=== PATIENT | male | born 1995 ===

== ENCOUNTER 2019-04-23 01:13 | Emergency (ER) | payer SELFPAY ==
--- NOTE | 2019-04-23 01:35 | ER Report ---
History and Physical Time Seen By MD: 01:31 HPI/ROS CHIEF COMPLAINT: Suicidal ideation HISTORY OF PRESENT ILLNESS: 23-year-old male, anxious brought in by police and fire dispatcher who brought him in after he picked up one of the blue phones for help. Patient states he was wandering around trying to find the hospital. He is acutely anxious. He is expressing suicidal ideation. He has a plan to jump off a bridge. Patient denies drugs or alcohol use. He states occasional alcohol. Patient's currently on an antibiotic for abrasions on his arm from a accident skateboarding. Patient is here visiting from [place]. Patient states he should probably be in counseling, but he doesn't go. REVIEW OF SYSTEMS: Respiratory: No cough, no dyspnea. Cardiovascular: No chest pain, no palpitations. Gastrointestinal: No vomiting, no abdominal pain. Musculoskeletal: No back pain. Allergies: Coded Allergies: No Known Drug Allergies (Unverified , 04/23/19) Reviewed Nurses Notes: Yes Old Medical Records Reviewed: Yes Constitutional Physical Exam General Appearance: The patient is alert, has no immediate need for airway protection and no current signs of toxicity. Eyes: Pupils equal and round no injection. Respiratory: Chest is non tender, lungs are clear to auscultation. Cardiac: regular rate and rhythm Gastrointestinal: Abdomen is soft and non tender, no masses, bowel sounds normal. Musculoskeletal: Neck: Neck is supple and non tender. Extremities have full range of motion and are non tender. There are healing abrasions on his left forearm, no signs of infection Skin: No rashes or lesions. DIFFERENTIAL DIAGNOSIS: After history and physical exam differential diagnosis was considered for depression including functional and major depression, situational depression, medication side effect, drugs and alcohol abuse. Medical Decision Making Data Points Laboratory Hematology Test 04/23/19 01:55 White Blood Count 6.1 k/uL (4.5-11.0) Red Blood Count 4.95 M/uL (4.00-5.60) Hemoglobin 16.8 g/dL (14.0-18.0) Hematocrit 48.6 % (42.0-52.0) Mean Corpuscular Volume 98.1 fL (80.0-96.0) H Mean Corpuscular Hemoglobin 33.9 pg (26.0-33.0) H Mean Corpuscular Hemoglobin Concent 34.5 g/dL (32.0-36.0) Red Cell Distribution Width 13.6 % (11.5-14.5) Platelet Count 295 K/uL (150-450) Mean Platelet Volume 7.6 fL (7.2-11.1) Neutrophils (%) (Auto) 54.0 % (39.4-72.5) Lymphocytes (%) (Auto) 35.8 % (17.6-49.6) Monocytes (%) (Auto) 8.0 % (4.1-12.4) Eosinophils (%) (Auto) 1.5 % (0.4-6.7) Basophils (%) (Auto) 0.7 % (0.3-1.4) Nucleated RBC Relative Count (auto) 0.1 /100WBC Neutrophils # (Auto) 3.3 K/uL (2.0-7.4) Lymphocytes # (Auto) 2.2 K/uL (1.3-3.6) Monocytes # (Auto) 0.5 K/uL (0.3-1.0) Eosinophils # (Auto) 0.1 K/uL (0.0-0.5) Basophils # (Auto) 0.0 K/uL (0.0-0.1) Nucleated RBC Absolute Count (auto) 0.00 K/uL Chemistry Test 04/23/19 01:55 Sodium Level 143 mmol/L (137-145) Potassium Level 4.1 mmol/L (3.5-5.0) Chloride Level 107 mmol/L (98-107) Carbon Dioxide Level 26 mmol/L (22-30) Blood Urea Nitrogen 9 mg/dl (9-21) Creatinine 1.00 mg/dl (0.66-1.25) Glomerular Filtration Rate Calc > 60.0 Random Glucose 97 mg/dl (75-110) Calcium Level 8.8 mg/dl (8.4-10.2) Magnesium Level 2.2 mg/dl (1.7-2.2) Total Bilirubin 1.4 mg/dl (0.2-1.3) Aspartate Amino Transf (AST/SGOT) 27 U/L (0-35) Alanine Aminotransferase (ALT/SGPT) 29 U/L (0-56) Alkaline Phosphatase 74 U/L (0-126) Total Protein 7.8 g/dl (6.3-8.2) Albumin 4.6 g/dl (3.5-5.0) Thyroid Stimulating Hormone (TSH) 1.19 uIU/ml (0.46-4.68) Toxicology Test 04/23/19 01:51 04/23/19 01:55 Urine Opiates Screen Negative Urine Barbiturates Screen Negative Ur Tricyclic Antidepressants Screen Negative Urine Phencyclidine Screen Negative Urine Amphetamines Screen Negative Urine Benzodiazepines Screen Negative Urine Cocaine Screen Negative Urine Cannabinoids Screen Positive Salicylates Level < 10 mg/L Salicylate Last Dose Date unk Acetaminophen Level < 10 ug/ml Serum Alcohol 192 mg/dl Urinalysis Test 04/23/19 01:51 Urine Color Yellow Urine Clarity Clear Urine pH 6.0 pH (4.8-9.5) Urine Specific [place] 1.010 Urine Protein Negative mg/dL (NEGATIVE) Urine Glucose (UA) Negative mg/dL (NEGATIVE) Urine Ketones Negative mg/dL (NEGATIVE) Urine Blood Negative (NEGATIVE) Urine Nitrite Negative (NEGATIVE) Urine Bilirubin Negative (NEGATIVE) Urine Urobilinogen Negative mg/dL (0.2-1.9) Urine Leukocyte Esterase Negative (NEGATIVE) Urine RBC None /HPF (0-2/HPF) Urine WBC <1 /HPF (0-5/HPF) Urine Squamous Epithelial Cells None /LPF (</=FEW) Urine Bacteria Negative /HPF (NONE-FEW) Urine Mucus None /HPF (NONE-FEW) ED Course/Re-evaluation ED Course Patient was minute to an examination room. H&P was done. The differential diagnoses was considered. On conical examination, patient appears severely depressed. He has some suicidal fleeting thoughts. He has no actual plan. He would like to follow-up with outpatient counseling. Patient states she's previously been admitted on a 72 hour mental health hold back in [place]. He is provide information. Decision to Disposition Date: May 24, 2019 Decision to Disposition Time: 02:13 Depart Departure Latest Vital Signs Impression: Primary Impression: Depression with suicidal ideation Additional Impression: Anxiety Condition: Improved Disposition: HOME OR SELF-CARE Patient Instructions: Anxiety (ED), Depression (ED) Additional Instructions: Follow-up with mental health resources within one week Return to the ER for any worsening Problem Qualifiers CHRISTIANO DAVIS DO Apr 23, 2019 01:35
[2019-04-23] MEDS ORDERED: LORazepam 1 MG TAB PO ONE (01:55)
[2019-04-23 02:08] LABS: PLATELET COUNT, AUTOMATED 295 K/uL (150-450)
[2019-04-23 02:30] VITALS: BP 119/98
== END 2019-04-23 03:38 | disposition home or self-care (01) ==
LOC: ER 01:43
DX: R45.851 Suicidal ideations (principal); F32.9 Major depressive disorder, single episode, unspecified
CPT/HCPCS: 36415; 80305; 80320; 80329; 81001; 82040; 82247; 82310; 82374; 82435; 82565; 82947; 83735; 84075; 84132; 84155; 84295; 84443; 84450; 84460; 84520; 85025; 99283